=== PATIENT | male | born 1950 | race Caucasian/White ===

== ENCOUNTER 2022-11-15 09:07 | Emergency (ER) | payer MEDICARE, SELFPAY ==
--- NOTE | ~2022-11-15 | XR_ITS ---
EXAMINATION: XR elbow RT min 3V DATE: 11/15/2022 09:55 INDICATION: Right elbow pain and limited range of motion TECHNIQUE: Anteroposterior, two oblique and lateral views of the right elbow were obtained. COMPARISON: None. FINDINGS: Alignment is normal. No fracture. Mild osteoarthritis at the right elbow with mild nonuniform joint s pace narrowing and small marginal osteophytes in all 3 compartments. No erosions. There is a joint ef fusion versus synovitis at the anterior recess of the elbow which displaces the anterior but not the posterior fat pad. IMPRESSION: 1. Mild polyarticular osteoarthritis with joint effusion and/or synovitis at the right elbow. Reviewed, dictated and finalized at location A. IMPRESSION: 1. Mild polyarticular osteoarthritis with joint effusion and/or synovitis at th e right elbow.
[2022-11-15 09:11] VITALS: BP 152/93; PULSE 77; RESP 20; TEMP 36.6; O2SAT 99
--- NOTE | 2022-11-15 10:17 | ED.UPPEXIN ---
HPI - Extremity Injury (Upper) General Chief Complaint: Extremity Injury, Upper Stated Complaint: elbow pain Time Seen by Provider: 11/15/22 09:16 History of Present Illness HPI narrative: Patient is a 72-year-old male who presents ER with right elbow swelling and pain worsening over the last 3 days. No known trauma but reports over the weekend he was doing a lot of lifting and cleaning out at home. No fevers or chills or sweats. No recent dental procedures. No IV drug use. There is no redness to the area. Patient reports remote history of gout that was in his foot. Related Data Home Medications Medication Instructions Recorded Confirmed mecobalamin (vitamin B12) 1,000 1,000 mcg PO DAILY 08/24/21 11/07/22 mcg chewable tablet ascorbate calcium (vitamin C) 500 500 mg PO DAILY 11/07/22 11/07/22 mg tablet Allergies Allergy/AdvReac Type Severity Reaction Status Date / Time No Known Allergies Allergy Unknown Verified 11/15/22 09:17 Review of Systems Constitutional: Constitutional: Denies chills and Denies fever(s) Musculoskeletal: Musculoskeletal: Reports arthralgias, Reports joint swelling and Denies muscle cramps Integumentary/Breasts: Skin/Breast: Denies pruritus, Denies erythema and Denies rash Neurologic: Denies focal weakness and Denies numbness PMFSH Past Medical History Medical History (Updated 11/15/22 @ 10:42 by Bigg Gao MD) Encounter for screening for malignant neoplasm of prostate History of smoking 25-50 pack years Osteoarthritis of both knees RLL pneumonia Surgical History Surgical History (Updated 11/07/22 @ 14:37 by Marsha Harry PA-C) H/O lumpectomy (~2018) cancer center [place], [place] History of bilateral carpal tunnel release History of hernia repair (~2007) History of knee replacement Family History Family History Father Diabetes mellitus Mother Cerebrovascular accident Social History Social History Smoking packs per day: 1 Smoking cigarettes per day: 20.0 Years smoked: 55 Smoking pack-years: 55.00 Smoking status: Current every day smoker Alcohol intake: current Alcohol use details: consumes 1 beer daily Substance use: current Substance use type: marijuana Other substance usage details: smoke marijuana 1xmonth Exam Narrative: GENERAL: Well-appearing, well-nourished, and in no acute distress. HEAD: Normocephalic, atraumatic. ENT: Mucous membranes moist. CHEST: Clear to auscultation. No respiratory distress. HEART: Regular rate and rhythm. Normal peripheral pulses. EXTREMITIES: Right elbow with mild edema. Cannot reach full extension and can flex beyond 90 degrees. No warmth or erythema. Neurovascular intact. No bursitis. Tenderness is over the lateral aspect of the elbow mainly and not over the olecranon or medially. SKIN: Warm, dry, no rash. NEURO: Alert and oriented x3. PSYCH: Normal mood and affect. Course Course Emergency Course: Discussed x-ray results and conservative treatment plan with anti-inflammatories and immobilization. Patient verbalized understanding. Discharge home. Vital Signs Vital signs: Vital Signs Temperature 98 F 11/15/22 09:11 Pulse Rate 77 11/15/22 09:11 Respiratory Rate 11/15/22 09:11 Blood Pressure 152/93 H 11/15/22 09:11 Pulse Oximetry 99 11/15/22 09:11 Oxygen Delivery Room Air 11/15/22 09:11 Temperature 98 F 11/15/22 09:11 Pulse Rate 77 11/15/22 09:11 Respiratory Rate 20 11/15/22 09:11 Blood Pressure 152/93 H 11/15/22 09:11 Pulse Oximetry 99 11/15/22 09:11 Oxygen Delivery Room Air 11/15/22 09:11 MDM - Extremity Injury (Upper) Imaging Data Radiologist's impression: ITS Impressions Elbow X-Ray 11/15/22 09:59 IMPRESSION: 1. Mild polyarticular osteoarthritis with joint effusion and/or synovitis at the right elbow.
[2022-11-15] MEDS: NAPROXEN 375 MG TABLET PO (10:18)
== END 2022-11-15 10:50 | disposition home or self-care (01) ==
PROVIDERS: Emergency Provider Emergency Medicine; PCP Family Medicine
DX: M25.421 Effusion, right elbow (principal); M17.0 Bilateral primary osteoarthritis of knee; Z96.659 Presence of unspecified artificial knee joint; Z87.01 Personal history of pneumonia (recurrent); F17.210 Nicotine dependence, cigarettes, uncomplicated; M19.021 Primary osteoarthritis, right elbow
CPT/HCPCS: 73080; 99283; A9270

== ENCOUNTER 2025-02-11 11:53 | Emergency (ER) | payer MEDICARE, SELFPAY ==
[2025-02-11 11:55] VITALS: BP 138/73; PULSE 77; RESP 16; TEMP 36.6; O2SAT 99
--- NOTE | 2025-02-11 11:55 | ED.GENADULT ---
HPI - General Adult General Chief complaint: Skin/Abscess/Foreign Body Stated complaint: Bump On Right Shoulder Time Seen by Provider: 02/11/25 11:55 Source: patient Mode of arrival: ambulatory Limitations: no limitations History of Present Illness HPI narrative: Pt is a 74 y/o male presenting with c/o bump on his right shoulder. Reports bump has been present x several years--became worse over the last few weeks. No tx initiated [employer]. NO constitutional sx. NO additional complaints. Related Data Home Medications ?Medication ?Instructions ?Recorded ?Confirmed ?Last Taken ?Type mecobalamin (vitamin B12) 1,000 1,000 mcg PO DAILY 08/24/21 11/07/22 Unknown History mcg chewable tablet ascorbate calcium (vitamin C) 500 500 mg PO DAILY 11/07/22 11/07/22 Unknown History mg tablet Allergies Allergy/AdvReac Type Severity Reaction Status Date / Time No Known Allergies Allergy Unknown Verified 11/15/22 09:17 Review of Systems Review of Systems: CONSTITUTIONAL: Denies body aches, fever, chills, or sweats. EYES: Denies visual changes, redness, or discharge. ENT: Denies rhinorrhea, congestion, sore throat, or otalgia. CARDIOVASCULAR: Denies chest pain, palpitations, or edema. RESPIRATORY: Denies cough or dyspnea. GASTROINTESTINAL: Denies abdominal pain, nausea, vomiting, or diarrhea. GENITOURINARY: Denies dysuria or hematuria. SKIN: Reports bump to his right shoulder Denies rash, itching, or wounds. MUSCULOSKELETAL: Denies back pain, joint pain, or myalgia. NEUROLOGIC: Denies headache, numbness, tingling, or weakness. PSYCH: Denies depression or anxiety. All systems reviewed & are unremarkable except as noted in HPI and below [facility] Past Medical History Medical History (Updated 02/11/25 @ 13:04 by Bran Wills, HAYDE) Encounter for screening for malignant neoplasm of prostate History of smoking 25-50 pack years RLL pneumonia Osteoarthritis of both knees Surgical History Surgical History (Updated 11/07/22 @ 14:37 by Marsha Harry, PAShraddhaC) H/O lumpectomy (~2018) cancer center - [place], [place] History of hernia repair (~2007) History of knee replacement History of bilateral carpal tunnel release Family History Family History Father Diabetes mellitus Mother Cerebrovascular accident Social History Social History Smoking packs per day: 1 Smoking cigarettes per day: 20.0 Years smoked: 55 Smoking pack-years: 55.00 Smoking status: Current every day smoker Alcohol intake: current Alcohol use details: consumes 1 beer daily Substance use: current Substance use type: marijuana Other substance usage details: smoke marijuana 1xmonth Exam Narrative: GENERAL: Well-appearing, well-nourished, and in no acute distress. HEAD: Normocephalic, atraumatic. EYES: EOMI. No redness or drainage. Conjunctivae normal. ENT: Mucous membranes pink and moist. NECK: Normal AROM. Supple. CHEST: No respiratory distress. HEART: Regular rate Normal peripheral pulses. MUSCULOSKELETAL: No bony tenderness. EXTREMITIES: Normal range of motion. SKIN: Warm, dry, no rash. quarter sized area of induration with fluctuance and faint erythema noted to the top of the R. shoulder, overlying the R. trapezius muscle. There is no drainage. There is no lymphatic streaking. Capillary refill normal. Normal skin turgor. NEURO: No focal deficits. Alert and oriented x3. Gait steady. PSYCH: Normal affect. No signs of depression or anxiety. Course Course Emergency Course: Discussed elevated blood pressure readings with patient and advised daily BP monitoring and f/u with PCP if persisting. Level of Care: Express Care Visit Vital Signs Vital signs: Vital Signs Temperature 98 F 02/11/25 11:55 Pulse Rate 77 02/11/25 11:55 Respiratory Rate 16 02/11/25 11:55 Blood Pressure 138/73 02/11/25 11:55 Pulse Oximetry 99 02/11/25 11:55 Temperature 98 F 02/11/25 11:55 Pulse Rate 77 02/11/25 11:55 Respiratory Rate 16 02/11/25 11:55 Blood Pressure 138/73 02/11/25 11:55 Pulse Oximetry 99 02/11/25 11:55 Procedures Abscess I/D upper extremity: Date of Incision: 02/11/25 Time of Incision: 12:45 Side (if applicable): right Local Anesthetic: lidocaine 1% and with epi Amount of anesthesia used (mL): 2 Technique: incised with #11 blade Amount of fluid expressed (mL): 2 Irrigation: Yes Packing used?: none I&D Results: Pus, Blood and Other (sebaceous content) Complications: other (none) MDM Differential Diagnosis Differential Diagnosis: cellulitis, abscess, sebaceous cyst Discharge Plan Discharge Clinical Impression: Abscess of skin or subcutaneous tissue, Primary hypertension Patient Disposition: Home Condition: Stable Instructions: Antibiotic Form, Dermal Cyst Excision (DC) Additional Instructions: Go straight to ER should your symptoms become worse or should any new symptoms develop Patient Language: Romanian Prescriptions: New cephalexin 500 mg capsule 500 mg PO Q6H 5 Days Qty: 20 0RF No Action mecobalamin (vitamin B12) 1,000 mcg tablet,chewable 1,000 mcg PO DAILY ascorbate calcium (vitamin C) 500 mg tablet 500 mg PO DAILY naproxen 375 mg tablet 375 mg PO BID Qty: 14 0RF hydrocodone-acetaminophen 5-325 mg tablet 1 tablet PO Q6H Qty: 12 0RF lisinopril 20 mg tablet 20 mg PO DAILY Qty: 90 1RF Follow-up/Referrals: Willie,MD Aiyana [Primary Care Provider, Family Practice] - 02/12/25 Time of Disposition: 12:39
[2025-02-11] MEDS: LIDO 1%/EPINEPHRINE 1:100,000 20 ML VIAL 5 ML INFILTRATE (12:17)
== END 2025-02-11 12:50 | disposition home or self-care (01) ==
PROVIDERS: Emergency Provider Registered Nurse; PCP Family Medicine
DX: L02.413 Cutaneous abscess of right upper limb (principal); F17.210 Nicotine dependence, cigarettes, uncomplicated; M17.0 Bilateral primary osteoarthritis of knee
CPT/HCPCS: 10060; 99213; G0463; J2004